=== PATIENT | male | born 1975 | race Caucasian/White ===

== ENCOUNTER 2024-03-18 02:13 | Day surgery (SDC) | payer BC, SELFPAY ==
[2024-03-08 14:12] VITALS: BMI 22.1
[2024-03-18 07:30] VITALS: BP 130/75; PULSE 99; RESP 18; TEMP 36.6; O2SAT 100
[2024-03-18 07:39] VITALS: BMI 20.5
[2024-03-18] MEDS: LACTATED RINGERS 1,000 ML 150 ML IV CONT (07:49)
--- NOTE | 2024-03-18 07:54 | P.PNAN_ITS ---
Anes - Initial Pre Proc Eval Procedure: Operation Date: 03/18/24 08:30 Proposed Procedures p Screening Colonoscopy - Terrence Trinh MD Date/Time: 03/18/24 07:54 Surgeon: Terrence Trinh MD Pre Op Diagnosis: screening colon Patient Data Age: 48 Gender: M Height: 1.88 m Weight: 72.3 kg Last Vital Signs Temp 36.6 C 03/18/24 07:30 Pulse 99 03/18/24 07:30 Resp 18 03/18/24 07:30 BP 130/75 03/18/24 07:30 Pulse Ox 100 03/18/24 07:30 O2 Del Method Room Air 03/18/24 07:30 Allergies Allergy/AdvReac Type Severity Reaction Status Date / Time No Known Allergies Allergy Verified 03/08/24 14:09 Home Medications Medication Instructions Recorded Confirmed Type No Home Medications 03/08/24 03/08/24 History Patient hx anesthesia problems: none Family hx anesthesia problems: none Results Review: All pre-operative results and documents have been reviewed as part of the pre- operative evaluation. [facility] Social History Social History Smoking packs per day: 0.5 Smoking cigarettes per day: 10.0 Years smoked: 10 Smoking pack-years: 5.00 Tobacco type: cigarettes Substance use type: marijuana Last use: 2months Living arrangements: alone Spiritual care concerns: No Anes - Eval Final PreProcedure Day of Procedure 03/18/24 07:54 Patient weight: normal Heart: regular rate and rhythm Lungs: clear to auscultation Airway: Mallampati scale class II Neurological: alert and oriented Last oral intake: >/= 8 hours ASA classification: I Emergent: no Anesthetic plan: proceed Anesthesia type and monitoring: general GIVS and standard monitoring Results Review: All pre-operative results and documents have been reviewed as part of the pre- operative evaluation. Informed Consent: The patient's anesthetic plan and its attendant risks and benefits were discussed with the patient/family/POA. Questions were solicited and answers provided to the satisfaction of the patient/family/POA.
--- NOTE | 2024-03-18 08:28 | PM.IMHP ---
H&P: HPI History of Present Illness Date/Time: 03/18/24 08:28 Chief Complaint: Screening colonoscopy Narrative: This is the patient's first colonoscopy. There are no GI symptoms and there is no family history of colorectal cancer. Review of Systems Review of Systems: All systems reviewed & are unremarkable except as noted in HPI and below [facility] Social History Social History Smoking packs per day: 0.5 Smoking cigarettes per day: 10.0 Years smoked: 10 Smoking pack-years: 5.00 Tobacco type: cigarettes Substance use type: marijuana Last use: 2months Living arrangements: alone Spiritual care concerns: No Meds Home Medications and Allergies Home Medications Medication Instructions Recorded Confirmed Type No Home Medications 03/08/24 03/08/24 History Allergies Allergy/AdvReac Type Severity Reaction Status Date / Time No Known Allergies Allergy Verified 03/08/24 14:09 Vital Signs Vital Signs - 24 hr 03/18/24 07:30 Temperature 97.8 F Pulse Rate 99 Respiratory Rate 18 Blood Pressure 130/75 Pulse Oximetry 100 Oxygen Delivery Room Air Assessment and Plan Assessment and plan (1) Screening for malignant neoplasm of colon: Code(s): Z12.11 - Encounter for screening for malignant neoplasm of colon Status: Acute Assessment and Plan: The patient is deemed a good candidate for the procedure. Consent signed. Will proceed.
[2024-03-18 08:52] VITALS: BP 92/61; PULSE 59; RESP 16; O2SAT 100
[2024-03-18 09:02] VITALS: BP 102/59; PULSE 73; RESP 12; O2SAT 100
[2024-03-18 09:12] VITALS: BP 109/66; PULSE 60; RESP 16; O2SAT 100
== END 2024-03-18 09:57 | disposition home or self-care (01) ==
PROVIDERS: Visit Provider Internal Medicine Gastroenterology
PROC: 0DJD8ZZ Inspection of Lower Intestinal Tract, Via Natural or Artificial Opening Endoscopic (ICD-10-PCS; CPT 45378; principal; 2024-03-18 08:30)
DX: Z12.11 Encounter for screening for malignant neoplasm of colon (principal); D12.8 Benign neoplasm of rectum; F17.210 Nicotine dependence, cigarettes, uncomplicated; F12.90 Cannabis use, unspecified, uncomplicated
CPT/HCPCS: 45385; 88305; J2003; J2704; J7120